=== PATIENT | female | born 1955 | race Caucasian/White ===

== ENCOUNTER 2021-10-18 09:14 | Outpatient (CLI) | payer OTHER | END 2021-10-18 14:49 | disposition home or self-care (01) | LOC: LAB 09:14 | DX: U07.1 COVID-19 (principal) ==

== ENCOUNTER 2024-10-19 05:15 | Day surgery (SDC) | payer OTHER ==
[2024-10-12 07:35] VITALS: BP 124/73
[2024-10-12 07:35] LABS: URINE APPEARANCE Clear; URINE BILIRRUBIN Negative (NEGATIVE); URINE BLOOD Negative; URINE COLOR Yellow; URINE GLUCOSE Negative (NEGATIVE); URINE KETONE Negative (NEGATIVE); URINE LEUKOCYTE Negative; URINE NITRATE Negative; URINE PROTEIN Negative (NEGATIVE); URINE UROBILINOGEN 0.2 E.U./dl
[2024-10-12 07:36] LABS: URINE BACTERIA 380.6 uL (0.0-1933); URINE EPITHELIAL CELLS 4.7 uL (0.0-38.8); URINE RBC 3.8 uL (0.0-20.8); URINE WBC 6.4 uL (0.0-23.2)
[2024-10-12 08:08] LABS: HEMATOCRIT 43.3 % (36.0-45.00); HEMOGLOBIN 14.9 g/dL (12.0-15.00); MEAN CELL VOLUME 82.8 fL (80.00-100.00); MEAN CORPUSCULAR HEMOGLOBIN 28.4 pg (27.00-32.0); MEAN CORPUSCULAR HGB CONC 34.3 g/dl (32.0-36.0); PLATELET COUNT 258 K/uL (150-450); RED BLOOD COUNT 5.23 M/uL (4.00-6.00); RED CELL DISTRIBUTION WIDTH 13.7 % (11.5-14.5)
[2024-10-12 08:11] LABS: INR 1.06; PARTIAL THROMBOPLASTIN TIME 27.6 SECONDS (22.0-34.0); PROTHROMBIN TIME 11.5 SECONDS (9.0-11.5)
[2024-10-12 08:23] LABS: ALBUMIN 3.8 gm/dL (3.4-5.0); BILIRUBIN TOTAL 0.51 mg/dL (0.3-1.2); CALCIUM 9.6 mg/dL (8.5-10.1); CREATININE SERUM 0.76 mg/dL (0.55-1.02); GFR 75.91; GLOBULINA 3.5 G/DL (2.4-3.5); POTASSIUM 4.69 mEq/L (3.5-5.1); TOTAL PROTEIN 7.3 gm/dL (6.4-8.2)
[~2024-10-19] VITALS: Ht 157.5 cm; Wt 90.7 kg
[~2024-10-19 05:15] MED LIST: EZALLOR SPRINKL20 MG PO; LIPOFEN150 MG; LOVAZA; VITAMIN D
[2024-10-19] MEDS ORDERED: CIPROFLOXACIN IN 5 % DEXTROSE 400 MG/200 ML PIGGYBAG IV ONE (06:59)
[2024-10-19] MEDS ORDERED: BUPIVACAINE HCL/Mpf 0.5% 10ML VIAL ONE (07:01)
[2024-10-19] MEDS ORDERED: LIDOCAINE HCL 1%/EPINEPHRINE 20ML VIAL IJ ONE (07:01)
[2024-10-19] MEDS ORDERED: SUGAMMADEX SODIUM 200 MG/2 ML VIAL IV ONE (09:04)
[2024-10-19] MEDS ORDERED: FAMOTIDINE/PF 20 MG/10 ML SYRINGE IV SCH (10:00)
[2024-10-19] MEDS ORDERED: MORPHINE SULFATE 4 MG/ML VIAL IV ONE (10:10)
[2024-10-19] MEDS ORDERED: FAMOTIDINE/PF 20 MG/2 ML VIAL ONE (10:31)
== END 2024-10-19 11:50 | disposition home or self-care (01) ==
LOC: CIR.AMB 05:15
PROVIDERS: ATTEND Specialist
DX: K80.10 Calculus of gallbladder with chronic cholecystitis without obstruction (principal); J45.909 Unspecified asthma, uncomplicated; J44.9 Chronic obstructive pulmonary disease, unspecified; Z88.0 Allergy status to penicillin; Z88.6 Allergy status to analgesic agent; Z91.014 Allergy to mammalian meats; Z91.02 Food additives allergy status